=== PATIENT | female | born 1980 | race Caucasian/White ===

== ENCOUNTER → 2017-09-21 07:06 | Outpatient (CLI) | payer OTHER, SELFPAY ==
[2017-09-21 07:54] LABS: Add Manual Diff / Slide Review NO; Basophils Percent Auto 0.5 % (0-2); Eosinophils Percent Auto 11.2 % (2-4); Hemoglobin 13.3 g/dL (12.0-16.0); Lymphocytes Percent Auto 56.4 % (25-40); Mean Corpuscular HGB Conc 34.1 % (30-36); Mean Corpuscular Hemoglobin 33.8 PG (26-34); Mean Corpuscular Volume 99.2 fL (80-100); Monocytes Percent Auto 8.6 % (3-14); Neutrophils Absolute Auto 1300 /uL (3000-5900); Neutrophils Percent Auto 23.3 % (50-75); Platelet Count 225 X10^3/uL (150-400); Red Blood Cell Count 3.93 X10^6/uL (4.0-5.2); Red Cell Distribution Width 11.9 % (11.6-14.8); White Blood Cell Count 5.5 X10^3/uL (4.5-11.0)
[2017-09-21 08:09] LABS: Alanine Aminotransferase 26 IU/L (9-52); Albumin 3.7 g/dL (3.5-5.0); Albumin Globulin Ratio 1.2 (1.0-2.8); Alkaline Phosphatase 35 U/L (38-126); Aspartate Aminotransferase 29 IU/L (14-36); BUN Creatinine Ratio 18.2 (6-22); Bilirubin Total 0.6 mg/dL (0.2-1.3); Blood Urea Nitrogen 20 mg/dL (7-17); Carbon Dioxide 27 mmol/L (22-32); Chloride 105 mmol/L (98-107); Cholesterol 135 mg/dL (140-199); Estimated Glomerular Filt Rate 55.9 mL/min (>60); Globulin 3.1 g/dL (1.7-4.1); Glucose 90 mg/dL (70-100); HDL Cholesterol 47 mg/dL (40-60); HEMOLYSIS < 15 (0-50); LDL Cholesterol Calculated 54 mg/dL (<100); Potassium 4.4 mmol/L (3.4-5.1); Sodium 142 mmol/L (137-145); Total Protein 6.8 g/dL (6.3-8.2); Triglycerides 169 mg/dL (35-150)
[2017-09-21 08:47] LABS: TSH w/ Reflex to FT4 1.37 uIU/mL (0.47-4.68)
== END ==
PROVIDERS: PCP Family Medicine; Visit Provider Family Medicine
DX: G47.26 Circadian rhythm sleep disorder, shift work type (principal); N94.6 Dysmenorrhea, unspecified; E03.9 Hypothyroidism, unspecified; F90.8 Attention-deficit hyperactivity disorder, other type
CPT/HCPCS: 36415; 80053; 80061; 84443; 85025

== ENCOUNTER → 2017-10-10 08:15 | Outpatient (CLI) | payer OTHER, SELFPAY ==
[2017-10-10 09:38] LABS: Hematocrit 40.3 % (36-46); Hemoglobin 14.1 g/dL (12.0-16.0); Mean Corpuscular Hemoglobin 34.8 PG (26-34); Mean Corpuscular Volume 99.4 fL (80-100); Platelet Count 245 X10^3/uL (150-400); Red Blood Cell Count 4.05 X10^6/uL (4.0-5.2); Red Cell Distribution Width 12.4 % (11.6-14.8); White Blood Cell Count 6.7 X10^3/uL (4.5-11.0)
[2017-10-10 11:56] LABS: Neutrophils Absolute Manual 3350 /uL (3000-5900); RBC Morphology Normal Morphology; Total Cells Counted 100
== END ==
PROVIDERS: PCP Family Medicine; Visit Provider Family Medicine
DX: D72.820 Lymphocytosis (symptomatic) (principal); D72.1 Eosinophilia
CPT/HCPCS: 36415; 85025

== ENCOUNTER → 2017-12-12 15:00 | Outpatient (CLI) | payer OTHER, SELFPAY | PROVIDERS: PCP Family Medicine | DX: Z23 Encounter for immunization (principal) | CPT/HCPCS: 90471; 90686 ==

== ENCOUNTER 2018-07-03 22:04 | Emergency (ER) | payer OTHER, SELFPAY ==
--- NOTE | 2018-07-03 22:26 | ED.GENADULT ---
HPI - General Adult <BLAKE Craft - Last Filed: 07/04/18 12:33> General Chief complaint: Environmental Exposure Stated complaint: Needle stick Time Seen by Provider: 07/03/18 22:09 Source: patient Mode of arrival: ambulatory Limitations: no limitations History of Present Illness HPI narrative: Patient is a 37-year-old female with history hypothyroidism who presents with a chief complaint of a needlestick. She was suturing a patient with an unknown IV drug use history and unknown hiv status when she stuck herself in her left interdigit fold between her first and second digits. She was accidentally stubbed with a needle. She noted blood flow from the wound. She immediately removed her gloves and washed it with soap and water. The patient has been vaccinated against hepatitis-B. Her most recent tetanus is in 2012. She denies any decreased mobility of her hand. Related Data Previous Rx's Medication Instructions Recorded dextroamphetamine-amphetamine 20 20 mg PO BID #60 tab 10/02/17 mg tablet lorazepam 1 mg tablet 0 mg PO Q6HP PRN #10 tab 10/02/17 modafinil 100 mg tablet 100 mg PO DAILY #30 tab 10/02/17 levothyroxine 125 mcg tablet 125 mcg PO DAILY #90 tab 11/08/17 norgestimate 0.25 mg-ethinyl 1 tab PO QDAY #28 tab 05/13/18 estradiol 35 mcg tablet Allergies Allergy/AdvReac Type Severity Reaction Status Date / Time Sulfa (Sulfonamide Allergy Severe rash Verified 07/03/18 23:02 Antibiotics) [SULFA (SULFONAMIDE ANTIBIOTICS)] Review of Systems <BLAKE Craft - Last Filed: 07/04/18 12:33> Review of Systems GENERAL: Denies chills, fatigue, malaise, fever, sweats. HEENT: Denies sinus pain, ear pain, sore throat, difficulty swallowing, dizziness. RESPIRATORY: Denies dyspnea, cough, wheezing, hemoptysis, sputum. MUSCULOSKELETAL: denies weakness, joint pain, or bony pain SKIN: See HPI NEUROLOGIC: Denies weakness, headache, numbness, change in speech, confusion, seizures, incoordination. PSYCHIATRIC: No concerning psychosocial issues. PFSH <BLAKE Craft - Last Filed: 07/04/18 12:33> Medical History ADHD (attention deficit hyperactivity disorder) (Chronic 2005) Bonnie's thyroiditis (Chronic 2005) Hypothyroidism (Chronic 2005) Exam <JUMA Craft - Last Filed: 07/04/18 12:33> Narrative Exam Narrative: GENERAL: no acute distress HEAD: Atraumatic. Normocephalic. CARDIOVASCULAR: Regular rate and rhythm RESPIRATORY: no cough. no increased resp effort. NEURO: AOx3. SKIN: puncture wound noted left digit in between first and second digits Initial Vital Signs Initial Vital Signs: Vital Signs Temperature 97.1 F L 07/03/18 23:02 Pulse Rate 70 07/03/18 23:02 Respiratory Rate 15 07/03/18 23:02 Blood Pressure 121/83 07/03/18 23:02 Pulse Oximetry 100 07/03/18 23:02 <Serena Solitario DO - Last Filed: 07/05/18 18:18> Initial Vital Signs Initial Vital Signs: Vital Signs Temperature 97.1 F L 07/03/18 23:02 Pulse Rate 70 07/03/18 23:02 Respiratory Rate 15 07/03/18 23:02 Blood Pressure 121/83 07/03/18 23:02 Pulse Oximetry 100 07/03/18 23:02 Course <JUMA Craft - Last Filed: 07/04/18 12:33> Orders Ordered: Discontinued Medications Diphtheria/Tetanus/Acell Pertussis (Adacel) 0.5 ml IM .ONCE ONE Stop: 07/03/18 22:10 Last Admin: 07/03/18 23:01 Dose: 0.5 ml <Serena Solitario DO - Last Filed: 07/05/18 18:18> Orders Ordered: Discontinued Medications Diphtheria/Tetanus/Acell Pertussis (Adacel) 0.5 ml IM .ONCE ONE Stop: 07/03/18 22:10 Last Admin: 07/03/18 23:01 Dose: 0.5 ml Medical Decision Making <JUMA Craft - Last Filed: 07/04/18 12:33> Lab Data Lab Results 07/03/18 07/03/18 Range/Units 22:53 22:53 ALT 53 H (9-52) IU/L Hepatitis C Antibody Negative (NEGATIVE) s/c HIV 1&2 Antibody Negative (NEGATIVE) MDM Narrative Medical decision making narrative: Blood exposure protocol at [facility] was followed. The patient's tetanus was made up to date. Discussed following up with primary care physician and/or medical records for blood results. <Serena Solitario DO - Last Filed: 07/05/18 18:18> Lab Data Lab results reviewed: Yes I reviewed the patient's lab results. Lab Results 07/03/18 07/03/18 Range/Units 22:53 22:53 ALT 53 H (9-52) IU/L Hepatitis C Antibody Negative (NEGATIVE) s/c HIV 1&2 Antibody Negative (NEGATIVE) Discharge Plan Departure Patient Disposition: Home Clinical Impression: Employee exposure to body fluids Needle stick injury of finger Qualifiers: Encounter type: initial encounter Qualified Code(s): S61.239A - Puncture wound without foreign body of unspecified finger without damage to nail, initial encounter Discharge Date/Time: 07/03/18 23:23 Interventions: ED Discharge Assessment Last Done: 07/03/18 23:20 Instructions: DI for Accidental Exposure to Body Fluids Activity Restrictions/Additional Instructions: please don't do this again. ava cuevas. Prescriptions: No Action levothyroxine [Synthroid] 125 mcg tablet 125 mcg PO DAILY Qty: 90 RF: 1 norgestimate-ethinyl estradiol [Ortho-Cyclen (28)] 0.25-35 mg-mcg tablet 1 tab PO QDAY Qty: 28 RF: 3 lorazepam 1 mg tablet PO Q6HP PRN (Reason: anxiety) Qty: 10 RF: 0 dextroamphetamine-amphetamine [Adderall] 20 mg tablet 20 mg PO BID Qty: 60 RF: 0 modafinil [Provigil] 100 mg tablet 100 mg PO DAILY Qty: 30 RF: 3 <Serena Solitario DO - Last Filed: 07/05/18 18:18> Cosign ED Attending Cosignature Attestation: I was immediately available in the department for consultation. Documentation has been reviewed. I agree with assessment and plan.
[2018-07-03] MEDS: TET,DIPH,PERTUSS(ACELL),VAC/PF 0.5 ML SYRINGE IM (23:01)
[2018-07-03 23:02] VITALS: BP 121/83; PULSE 70; RESP 15; TEMP 36.2; O2SAT 100
[2018-07-03 23:10] LABS: Alanine Aminotransferase 53 IU/L (9-52)
[2018-07-04 00:19] LABS: HIV 1 and 2 Antibody NEGATIVE (NEGATIVE); Hep C Virus Ab w/Reflex Quant NEGATIVE s/c (NEGATIVE)
[2018-07-06 14:54] LABS: Hepatitis B Surf Ab Qualitativ Reactive (Nonreactive)
== END 2018-07-03 23:23 | disposition home or self-care (01) ==
PROVIDERS: Emergency Provider Nurse Practitioner Family
DX: S61.239A Puncture wound without foreign body of unspecified finger without damage to nail, initial encounter (principal); Z57.8 Occupational exposure to other risk factors; Z23 Encounter for immunization
CPT/HCPCS: 36415; 84460; 86703; 86706; 86803; 90471; 99282; 99283; 90715

== ENCOUNTER → 2018-09-22 14:57 | Outpatient (ROUT) | payer OTHER, SELFPAY ==
[2018-09-22 16:53] LABS: HCG Quantitative /Beta subunit 32496 mIU/mL
== END ==
PROVIDERS: Visit Provider Obstetrics & Gynecology
DX: N91.2 Amenorrhea, unspecified (principal)
CPT/HCPCS: 36415; 84144; 84702

== ENCOUNTER → 2018-09-22 15:22 | Outpatient (CLI) | payer OTHER, SELFPAY | PROVIDERS: Visit Provider Obstetrics & Gynecology ==

== ENCOUNTER → 2018-09-25 08:04 | Outpatient (CLI) | payer OTHER, SELFPAY ==
[2018-09-25 09:21] LABS: HCG Quantitative /Beta subunit 60549 mIU/mL
== END ==
PROVIDERS: Visit Provider Obstetrics & Gynecology
DX: N91.2 Amenorrhea, unspecified (principal)
CPT/HCPCS: 36415; 84702

== ENCOUNTER → 2020-01-07 02:15 | Outpatient (CLI) | payer OTHER, SELFPAY | PROVIDERS: Referring Provider Internal Medicine; Visit Provider Internal Medicine | DX: Z23 Encounter for immunization (principal) | CPT/HCPCS: 90471; 90686 ==

== ENCOUNTER 2020-01-07 05:58 | Emergency (ER) | payer OTHER, SELFPAY ==
--- NOTE | 2020-01-07 06:04 | ED.GENADULT ---
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 Related Data Previous Rx's Medication Instructions Recorded dextroamphetamine-amphetamine 20 20 mg PO BID #60 tab 10/02/17 mg tablet lorazepam 1 mg tablet 0 mg PO Q6HP PRN #10 tab 10/02/17 modafinil 100 mg tablet 100 mg PO DAILY #30 tab 10/02/17 levothyroxine 125 mcg tablet 125 mcg PO DAILY #90 tab 11/08/17 norgestimate 0.25 mg-ethinyl 1 tab PO QDAY #28 tab 05/13/18 estradiol 35 mcg tablet Allergies Allergy/AdvReac Type Severity Reaction Status Date / Time Sulfa (Sulfonamide Allergy Severe rash Verified 01/07/20 06:19 Antibiotics) [SULFA (SULFONAMIDE ANTIBIOTICS)] Review of Systems Constitutional Constitutional: Denies fever(s) ENT Ears, Nose, Mouth, and Throat: Reports sore throat Cardiovascular Cardiovascular: Denies dyspnea Respiratory Respiratory: Denies cough and Denies dyspnea Patient History Medical History ADHD (attention deficit hyperactivity disorder) (Chronic 2005) Bonnie's thyroiditis (Chronic 2005) Hypothyroidism (Chronic 2005) Surgical History No history of previous surgery (Resolved 02/2014) Family History Brother Age: 36 Crohn's disease Father Age: 71 Hypothyroid Social History Smoking Status: Never smoker Exam Initial Vital Signs Initial Vital Signs: Vital Signs Temperature 97.7 F 01/07/20 06:06 Pulse Rate 61 01/07/20 06:06 Respiratory Rate 18 01/07/20 06:06 Blood Pressure 141/83 H 01/07/20 06:06 Pulse Oximetry 99 01/07/20 06:06 HENMT Throat: posterior oropharynx normal Resp Effort & Inspection: normal respiratory effort Course Orders Ordered: ED Orders 01/07/20 06:15 COVID19 -ED/INPAT/OR/L&D Stat Vital Signs Vital signs: Vital Signs - 8 hr 01/07/20 06:06 Temperature 97.7 F Pulse Rate 61 Respiratory Rate 18 Blood Pressure 141/83 H Pulse Oximetry 99 Medical Decision Making Lab Data Lab results reviewed: Yes I reviewed the patient's lab results. Labs: Lab Results 01/07/20 Range/Units 06:15 COVID-19 PCR Negative (Negative) Discharge Plan Departure Patient Disposition: Home Clinical Impression: Sore throat Prescriptions: No Action levothyroxine [Synthroid] 125 mcg tablet 125 mcg PO DAILY Qty: 90 RF: 1 norgestimate-ethinyl estradiol [Ortho-Cyclen (28)] 0.25-35 mg-mcg tablet 1 tab PO QDAY Qty: 28 RF: 3 lorazepam 1 mg tablet 0 mg PO Q6HP PRN (Reason: anxiety) Qty: 10 RF: 0 dextroamphetamine-amphetamine [Adderall] 20 mg tablet 20 mg PO BID Qty: 60 RF: 0 modafinil [Provigil] 100 mg tablet 100 mg PO DAILY Qty: 30 RF: 3
[2020-01-07 06:06] VITALS: BP 141/83; PULSE 61; RESP 18; TEMP 36.5; O2SAT 99; BMI 27.1
[2020-01-07 07:28] LABS: COVID19 -Nasal RAPID Negative (Negative)
== END 2020-01-07 07:40 | disposition home or self-care (01) ==
PROVIDERS: Emergency Provider Emergency Medicine
DX: J02.9 Acute pharyngitis, unspecified (principal)
CPT/HCPCS: 87635; 99281; 99282

== ENCOUNTER → 2020-03-25 08:32 | Outpatient (CLI) | payer OTHER, SELFPAY ==
[2020-03-25] MEDS: COVID-19 VACC(MODERNA-1)/PF 100 MCG/0.5 ML VIAL IM (08:37)
== END ==
PROVIDERS: Visit Provider Internal Medicine
DX: Z23 Encounter for immunization (principal)
CPT/HCPCS: 0011A; 91301

== ENCOUNTER → 2020-04-20 16:17 | Outpatient (CLI) | payer OTHER, SELFPAY ==
[2020-04-20] MEDS: COVID-19 VACC #2, MRNA(MOD) 100 MCG/0.5 ML VIAL IM (16:26)
== END ==
PROVIDERS: Visit Provider Internal Medicine
DX: Z23 Encounter for immunization (principal)
CPT/HCPCS: 0012A; 91301

== ENCOUNTER → 2021-01-10 12:36 | Outpatient (CLI) | payer OTHER, SELFPAY | PROVIDERS: Referring Provider Internal Medicine; Visit Provider Internal Medicine | DX: Z23 Encounter for immunization (principal) | CPT/HCPCS: 90471; 90686 ==

== ENCOUNTER → 2021-02-10 18:03 | Outpatient (CLI) | payer OTHER, SELFPAY ==
[2021-02-10 19:00] LABS: COVID19 -Nasal RAPID Negative (Negative)
== END ==
PROVIDERS: Referring Provider Internal Medicine; Visit Provider Internal Medicine
DX: Z20.822 Contact with and (suspected) exposure to COVID-19 (principal)
CPT/HCPCS: 87635

== ENCOUNTER → 2022-01-13 17:35 | Outpatient (CLI) | payer OTHER, SELFPAY | PROVIDERS: Referring Provider Internal Medicine; Visit Provider Internal Medicine | DX: Z23 Encounter for immunization (principal) | CPT/HCPCS: 90471; 90686 ==

== ENCOUNTER → 2023-01-13 14:58 | Outpatient (CLI) | payer OTHER, SELFPAY | PROVIDERS: Referring Provider Family Medicine; Visit Provider Family Medicine | DX: Z23 Encounter for immunization (principal) | CPT/HCPCS: 90471; 90686 ==

== ENCOUNTER → 2023-12-29 22:32 | Outpatient (CLI) | payer OTHER, SELFPAY | PROVIDERS: Referring Provider Internal Medicine; Visit Provider Internal Medicine | DX: Z23 Encounter for immunization (principal) | CPT/HCPCS: 90471; 90656 ==